=== PATIENT | female | born 1955 | race African-American/Black ===

== ENCOUNTER 2018-07-16 00:50 | Inpatient (IN) | payer MEDICARE ==
[2018-07-16] VITALS (8 sets, daily range): BP systolic 139–190; BP diastolic 59–77
[~2018-07-16] VITALS: Ht 167.6 cm; Wt 57.2 kg
--- NOTE | 2018-07-16 00:54 | NUR ---
Pt is medically cleared by BETO Nguyen MD.
--- NOTE | 2018-07-16 01:10 | NUR ---
Pt. [facility] from [facility] ER for Medical Clearance to admit to [facility],
--- NOTE | 2018-07-16 01:15 | NUR ---
Security at bedside, Mike Subramanian LCSW contacted - awaiting to be seen
--- NOTE | 2018-07-16 02:31 | NUR ---
Pt. up to use restroom - ambulates w/ steady gait, urine collected, awaiting Mike Subramanian LCSW for Crises Evaluation,
--- NOTE | 2018-07-16 03:06 | NUR ---
Mike Subramanian LCSW at bedside for CE
[2018-07-16] MEDS ORDERED: LAMO25TA10 PO (03:07)
[2018-07-16] MEDS ORDERED: CLON2TAB11 PO (03:07)
[2018-07-16] MEDS ORDERED: ZOLP10TA6 PO (03:07)
[2018-07-16] MEDS ORDERED: GABA-534 PO (03:07)
[2018-07-16] MEDS ORDERED: ATEN50TA PO (03:07)
[2018-07-16] MEDS ORDERED: HYDR-3028 PO (03:07)
[2018-07-16] MEDS ORDERED: TOPI50TA24 PO (03:07)
[2018-07-16] MEDS ORDERED: LATA7.5D OP (03:07)
[2018-07-16] MEDS ORDERED: CLONAZEPAM 0.5 MG TABLET PO PRN ×2 (04:00→18:45)
[2018-07-16] MEDS ORDERED: ACETAMINOPHEN 325 MG TABLET PO PRN (04:00)
[2018-07-16] MEDS ORDERED: TEMAZEPAM 7.5 MG CAPSULE PO PRN (04:00)
[2018-07-16] MEDS ORDERED: MAG HYDROX/AL HYDROX/SIMETH 30 ML LIQUID UDC PO PRN (04:00)
[2018-07-16] MEDS ORDERED: MAGNESIUM HYDROXIDE 30 ML LIQUID UDC PO PRN (04:00)
--- NOTE | 2018-07-16 04:11 | NUR ---
Pt. taken off unit via wheelchair to admit to [facility], all belongings sent - inventory sheet given, all paperwork and chart sent over, NAD
--- NOTE | 2018-07-16 05:44 | NUR ---
admitted a 62 yr old female from ER with adnitting diagnosis of psychosis. aaox3-4 patient came from [facility] and sent for medical clearance. patient very talkative and anxious. Hx of HTN, Anxiety, Bipolar, Depression and says she voluntary came for severe depression. Upon arrival to floor patient was cooperative but found out she is on 72 hour hold and patient got upset about it. Able to answer questions regarding admission but was really upset regarding the 72 hour hold. Vital signs taken and recorded.BP 181/72 HR 59 resp 18 pulse ox 91% on RA. BP rechecked after an hour BP 178/59 HR 61 Skin assessment done, pictures taken has some scratches from back, bilateral legs and feet. She says she been itching all over, benadryl and atarax done help her with the itching. She is a smoker, uses E cigarettes also and marijuana. Ambulatory voiding freely no acute distress noted. last BM 07/15/18.Will monitor patient.
--- NOTE | 2018-07-16 10:39 | NUR ---
received patient awake on bed, patient isolative and withdrawn, no sob no discomfort noted, patient has contraband medical marijuana , patient agreed to destroy since patient verbalize that nobody can pick it up for her, witness by charge alona , will continue monitor
[2018-07-16] MEDS: CLONAZEPAM 0.5 MG TABLET PO SCH ×2 (12:15→16:43)
[2018-07-16] MEDS: OXCARBAZEPINE 150 MG TABLET PO SCH ×3 (12:47→21:00)
--- NOTE | 2018-07-16 17:39 | NUR ---
received patient awake on bed, isolative, paranoid, withdrawn, patient has loose thoughts, verbalizing that she was psychiatrist and she has a FBI, patient refuse medication, seen ambulates in the hallway
[2018-07-16] MEDS ORDERED: hydrALAZINE HCL 25 MG TABLET PO PRN (18:15)
[2018-07-16] MEDS: LATANOPROST OPHT DROP 2.5 ML BOTTLE EACHEYE SCH (21:07)
--- NOTE | 2018-07-17 00:55 | NUR ---
GPS: Patient c/o anxiety. klonopin 0.5 mg po given per patient request.
--- NOTE | 2018-07-17 01:55 | NUR ---
GPS: Patient is resting in quietly. prn effective for anxiety.
--- NOTE | 2018-07-17 06:11 | NUR ---
GPS: Remain calm and cooperative with medications and care. c/o anxiety x1 meds given and effective. no agitation noted at this time. slept 7 hrs through the night.
[2018-07-17 07:25] LABS: BASOPHILS % (AUTO) 0.6 % (0.0-2.0); EOSINOPHILS # (AUTO) 0.1 K/uL (0.0-0.7); HEMATOCRIT 39.3 % (31.2-41.9); LYMPHOCYTES # (AUTO) 1.9 K/uL (20.0-40.0); LYMPHOCYTES % (AUTO) 32.6 % (20.5-51.5); MEAN CORPUSCULAR HEMOGLOBIN 30.4 uug (24.7-32.8); MEAN CORPUSCULAR HGB CONC 33 g/dL (32.3-35.6); MEAN CORPUSCULAR VOLUME 91.8 fL (75.5-95.3); MONOCYTES # (AUTO) 0.5 K/uL (2.0-10.0); MONOCYTES % (AUTO) 8.5 % (0.0-11.0); NEUTROPHILS # (AUTO) 3.4 K/uL (1.8-8.9); NEUTROPHILS % (AUTO) 57.3 % (38.5-71.5); PLATELET COUNT (AUTO) 299 K/uL (179-408); RED BLOOD CELL COUNT(AUTO) 4.28 MIL/uL (3.63-4.92)
[2018-07-17 07:30] VITALS: BP 179/76
[2018-07-17] MEDS: OXCARBAZEPINE 150 MG TABLET PO SCH (08:00)
[2018-07-17] MEDS: CLONAZEPAM 0.5 MG TABLET PO SCH ×2 (08:00→16:58)
[2018-07-17 08:18] LABS: BILIRUBIN,TOTAL 0.3 mg/dL (0.2-1.0); MAGNESIUM 2.1 mg/dL (1.8-2.4); PHOSPHOROUS 3.3 mg/dL (2.5-4.9); POTASSIUM 3.5 mmol/L (3.5-5.1); TOTAL PROTEIN, SERUM 6.6 g/dL (6.4-8.2)
[2018-07-17] MEDS ORDERED: GABAPENTIN 300 MG CAPSULE PO SCH (09:00)
[2018-07-17] MEDS ORDERED: LATANOPROST OP SCH (09:00)
[2018-07-17] MEDS: ATENOLOL 50 MG TABLET PO SCH (09:19)
[2018-07-17 09:34] LABS: THYROID STIMULATING HORMONE 2.188 mIU/mL (0.358-3.740)
[2018-07-17] MEDS ORDERED: CLONAZEPAM 0.5 MG TABLET PO PRN (12:12)
[2018-07-17] MEDS: GABAPENTIN 300 MG CAPSULE PO SCH ×2 (12:57→16:58)
--- NOTE | 2018-07-17 14:01 | NUR ---
Process Group: Patients were asked to reflect and respond to the question "If you could change one things about yourself, what would it be and why?" Subjective: "Not being over-generous" Objective: Patient was not present at beginning of session, but did join in the middle of group. Patient appeared anxious with labile affect. Patient shared and interacted with group. Assessment: Patient needed redirection to stay on topic and was at times hyperverbal. Plan: Encourage group attendance as scheduled. barge worker will help patient be self aware when speaking and encourage exploration of coping skills.
[2018-07-17 16:00] VITALS: BP 151/76
[2018-07-17 20:06] VITALS: BP 163/77
[2018-07-17] MEDS: LATANOPROST OPHT DROP 2.5 ML BOTTLE EACHEYE SCH (21:43)
[2018-07-18 00:32] VITALS: BP 147/52
--- NOTE | 2018-07-18 07:19 | NUR ---
patient miah shaking with generalize pain. Offered pain meds but refused. Patient is selective with medication. Provided support and encouraged to verbalize feelings.
[2018-07-18 07:30] VITALS: BP 155/56
--- NOTE | 2018-07-18 08:46 | NUR ---
DC Note: Patient will be discharged to the care of her friend, Juve Rowe [[address], [place] [address]; [phone]] via private transportation between 1-1:30pm. Spoke with patients friend, Juve Rowe ([phone]) who is aware and agreeable with discharge plans and will be providing transportation for the patient. Patient is aware and agreeable with discharge plans, denies SI/HI, and is able to plan for self-care. Patient will continue to follow-up with her Primary Care Physician, Dr. Agapito Wagner [Address: [address] [place], [place] [address], [place] [address]; ]. Patient also has a scheduled appointment with Psychiatrist, Dr. Ernesto Javed, today (07/18/18) @ 3:15pm [Address: [address] [place] [address] [address], [place] [address]; ]. Patient was provided with a brief substance abuse intervention and referred to [facility] , [facility] , and [facility] . Patient was provided with the homeless retirement packet, which includes a list of emergency shelters, housing resources, drop in centers, and showers/hot meals centers. This also included the Homeless Information Hotline (598)-563-0885 or 211, [place] [facility] [employer] (086)- 624-9499, and the [facility] (067)-533-6009; [facility] ([phone]). She has completed and signed the homeless patient waiver form.
[2018-07-18 09:00] VITALS: BP 156/56
[2018-07-18] MEDS: CLONAZEPAM 0.5 MG TABLET PO SCH (09:00)
[2018-07-18] MEDS ORDERED: AMLODIPINE 5 MG TABLET PO SCH (09:00)
[2018-07-18] MEDS: ATENOLOL 50 MG TABLET PO SCH (09:00)
[2018-07-18] MEDS: GABAPENTIN 300 MG CAPSULE PO SCH ×2 (09:01→12:43)
--- NOTE | 2018-07-18 14:12 | NUR ---
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 Reviewed medications, claimed needed to follow up with her own Psychiatrist/support after discharged, patient verbalized understanding. All belongings was returned back to patient. No complaints noted. Patient will be picked up by her friend Juve Rowe.
== END 2018-07-18 14:54 | disposition home health service (06) | DRG 885 ==
LOC: ER 00:54 → GPS 03:44
PROVIDERS: ADMIT Psychiatry & Neurology Psychosomatic Medicine; ATTEND Internal Medicine
PROC: GZ56ZZZ Individual Psychotherapy, Supportive (ICD-10-PCS; principal; 2018-07-17)
DX: F31.9 Bipolar disorder, unspecified (principal); E46 Unspecified protein-calorie malnutrition; G93.40 Encephalopathy, unspecified; Z59.0 Homelessness; I10 Essential (primary) hypertension; F10.10 Alcohol abuse, uncomplicated; Y90.9 Presence of alcohol in blood, level not specified; E78.5 Hyperlipidemia, unspecified; Z68.20 Body mass index [BMI] 20.0-20.9, adult; F41.9 Anxiety disorder, unspecified; F17.210 Nicotine dependence, cigarettes, uncomplicated; H40.9 Unspecified glaucoma; Z91.14 Patient's other noncompliance with medication regimen
CPT/HCPCS: 36415; 83735; 84100; 84443; 85025; A4663